=== PATIENT | male | born 1965 | race Caucasian/White ===

== ENCOUNTER → 2023-04-26 09:00 | Outpatient (REF) | payer OTHER, SELFPAY | LOC: RAD 09:00 | PROVIDERS: ATTENDING PHYSICIAN Student in an Organized Health Care Education/Training Program | DX: M25.512 Pain in left shoulder (principal) | CPT/HCPCS: 73030 ==

== ENCOUNTER 2023-09-18 08:43 | Emergency (ER) | payer OTHER, SELFPAY ==
[2023-09-18 08:48] VITALS: BP 141/83
[2023-09-18 09:26] VITALS: BMI 26.8
--- NOTE | 2023-09-18 09:26 | ED.GENMED ---
History of Present Illness
General
Chief Complaint: Abdominal Symptoms
Source: patient
Time Seen by Provider: 09/18/23 09:17
History of Present Illness
History of Present Illness:
58-year-old male with past medical history of hypertension, mbo-vsxviez-ucmoahnzx diabetes, anxiety presenting to the emergency department for 2 separate concerns. The most acute concern is patient developed generalized abdominal pain yesterday
evening, persisted throughout the night, described to be moderate to severe, constant, throbbing sensation, nonradiating, slightly improved currently but still present and accompanied with nausea and decreased p.o. intake. Patient denies any
history of similar and did not take any medications prior to arrival. Of secondary concern, patient states that he has had left hand swelling over the course of the last month, initially thought to be an allergic reaction so was using a topical
cream over the area but was then secondarily treated for a suspected cellulitis with an oral antibiotic which seem to be improving the swelling however over the last 48 hours the swelling seems to be worse again and now having pain up the entirety
of the left arm. Patient notes some skin breakdown in between the third and fourth digit of the affected left hand. States overall he is not sure as to how this started. Denies any focal weakness or numbness. No other concerns.
Past History
Past History
ED Past Medical History: HTN, Hypercholesterolemia, NIDDM and Psychiatric
ED Past Surgical History: Orthopedic, Tonsilectomy and Other (Gastrectomy and reversal, emergent surgery)
Social History
Tobacco: Non-smoker
Alcohol: None
Drug: None
Personal:
Living: with family
Employment: Employed (works for the government)
Family History
Family History: Other (nc)
Review of Systems
Review of Systems
All Other Systems: ROS reviewed and negative except as documented in HPI and ROS
Phy Exam
Physical Exam
Physical Exam:
GENERAL: Alert , in no apparent distress but is intermittently grimacing
EYE: clear conjunctiva b/l
HEAD: NCAT
ENT: mmm.
CARDIAC: Regular rate and rhythm .
LUNGS: Clear breath sounds bilaterally, no acute respiratory distress, no wheezes/rales/rhonchi
ABDOMEN: Soft, moderate tenderness within the left lower quad, no r/g, no cvat
NEUROLOGICAL: Alert and oriented
SKIN: Warm and dry, left hand: There is superficial skin breakdown on the palmar surface of the distal third and fourth metacarpal that extends towards the ring finger. There is no erythema, induration, warmth or tenderness. Patient is able to
flex and extend digits however does have some limited range of motion with flexion due to the edema but reports there is no pain while performing this. Sensation is grossly intact to light touch throughout the left upper extremity. Easily palpable
radial pulse. Cap refill less than 2 seconds.
MUSCULOSKELETAL: well perfused.
PSYCH: Normal and appropriate interaction.
Scores
Heart Failure Risk
Heart Failure Risk Score: Not Applicable
Heart Score for Chest Pain Patients
STEMI patient?: Not applicable
Withdrawal Assessment of Alcohol
Withdrawal Assessment Completed?: Not applicable
Course
Orders/Labs/Results
Orders:
Orders
09/18/23 09:20
Urinalysis Reflex To Culture Urgent
Date Specimen was Collected: 09/18/23
Time Specimen was Collected: 09:19
09/18/23 09:26
CT Abd/pelvis W Iv Cont Urgent
Comment:
Reason For Exam: generalized abd pain, worse LLQ on palpation
09/18/23 09:31
Complete Blood Count/With Diff Urgent
Comprehensive Metabolic Panel Urgent
Lipase Urgent
09/18/23 09:32
Ketorolac [Toradol] 30 mg IV NOW STA
09/18/23 11:49
Morphine Sulfate 4 mg IV NOW STA
Abnormal Lab Results
09/18/23 09/18/23
09:20 09:31
MPV 11.0 H fL
(7.4-10.4)
Glucose 207 H mg/dl
(70-99)
Urine Ketones Trace A
(Negative)
Urine Glucose 3+ A
(Negative)
09/18/23 09:31
09/18/23 09:31
Vital Signs
Initial and Last Documented VS:
Initial Vital Signs
Temp Pulse Resp BP Pulse Ox
98.2 F 81 18 141/83 98
09/18/23 08:48 09/18/23 08:48 09/18/23 08:48 09/18/23 08:48 09/18/23 08:48
Last Documented Vital Signs
Temp Pulse Resp BP Pulse Ox
98.2 F 65 20 147/77 100
09/18/23 08:48 09/18/23 12:14 09/18/23 12:14 09/18/23 12:14 09/18/23 12:14
MDM/Problems Addressed
Differential Diagnosis Includes:
Abdominal Concern - diverticulitis, appendicitis, renal/ureteral colic, pancreatitis, colitis
Skin related concern - cellulitis, tinea infection, tenosynovitis, foreign body/traumatic injury
MDM/Problems Addressed:
58-year-old male presenting to the emergency department for 2 separate related concerns. Patient did go to urgent care prior to arrival to the ER and was sent to the emergency department for further evaluation. His most pressing concern seems to
be the abdominal related symptoms. Will check labs. Patient amenable to pain medication with some Toradol. Pain seems to be more pronounced within the left lower quadrant and lower part of the abdomen. CT of the abdomen and pelvis ordered. For
patient's skin related presentation I am overall unclear as to what the exact etiology for his symptoms are however there does seem to be some improvement and given the duration of time with symptoms, I have minimal concern for emergent etiologies.
The skin breakdown seems to be older in appearance and not new. There is no overlying erythema or tenderness/pain associated. I am hesitant to start the patient on any other medications. Will provide him with information for outpatient follow-up
if symptoms persist or do not improve.
Chronic conditions affecting care: DM
*Radiology
Radiology exam reviewed: radiology read reviewed
*Pulse Oximetry
Patient hypoxic: no
*Critical Care Note
Total Time (30-74mins, 75-104mins- exclusive of procedures): Not Applicable
Data Reviewed
Review of Other/Old Records Reveals: Labs and Records
Source: patient
Patient Management
Escalation/DeEscalation of care consider admission/obs:
Patient CT scan shows suspected early acute uncomplicated sigmoid diverticulitis. Patient feels comfortable being discharged home. Will start on oral augmentin PO BID x 10 days. Advised close follow up with PCP as well as will need follow up with GI
as patient has yet to have colonoscopy before. Advised on return precautions to ED. Patient provided with printout of CT scan report.
ED Attending Note
-
Portions of this chart may have been created with voice recognition software.� Occasional wrong word or��sound alike� substitutions may have occurred due to the inherent limitations of voice recognition software.
Discharge Plan
Departure
Patient Disposition: Home (Routine Discharge)
Date of Disposition: 09/18/23
Time of Disposition: 12:26
Patient with high blood pressure during this ER visit?: Yes
Discharge Problem:
Diverticulitis
Instructions: Diverticulitis (DC)
Prescriptions:
New
amoxicillin-pot clavulanate 875-125 mg tablet
1 tab PO BID 10 Days Qty: 20 0RF
No Action
lisinopril 5 MG tablet
5 mg PO DAILY
hydrochlorothiazide 25 MG tablet
25 mg PO DAILY
metformin 500 MG tablet extended release 24 hr
500 mg PO Daily
atorvastatin [Lipitor] 40 mg Tablet
40 mg PO QPM
escitalopram oxalate [Lexapro] 20 mg Tablet
20 mg PO DAILY
lisdexamfetamine 40 mg Capsule
40 mg PO DAILYPRN PRN (Reason: adhd)
Referrals:
Clarice Roberts MD [Active] - (GI - Please call for appointment)
David Maria MD [Family Provider] -
Interventions
Interventions:
*Risk Screen - Suicide Last Done: 09/18/23 08:48
*General Assessment Last Done: 09/18/23 08:48
*Neglect/Abuse Screening Last Done: 09/18/23 08:48
ED- Fall Risk Assessment Last Done: 09/18/23 12:30
*ED COVID-19 Vaccine History Last Done: 09/18/23 08:48
*Nursing Disposition Last Done: 09/18/23 12:30
CD-Zwenvs-Bccrojyhho Assessment Last Done: 09/18/23 09:30
ED- Cardiac Assessment Last Done: 09/18/23 09:29
ED- Pulmonary Assessment Last Done: 09/18/23 09:29
ED-Skin Assessment Last Done: 09/18/23 09:29
Discharge Date and Time
Discharge Date/Time: 09/18/23 12:30
Print Language: AZERI
[2023-09-18] MEDS: TORADOL 30 MG IV (09:34)
[2023-09-18 09:46] LABS: % Basophils 0.4 % (0-2); % Eosinophils 0.7 % (0-6); % Immature Granulocytes 0.4 % (0-0.5); % Monocytes 6.9 % (1.7-9.3); % Neutrophils 69.6 % (42.2-75.2); Absolute Eosinophils 0.1 10^3/uL (0-0.7); Absolute Lymphocytes 1.7 10^3/uL (1.2-3.4); Absolute Monocytes 0.5 10^3/uL (0.1-0.6); Absolute Neutrophils 5.2 10^3/uL (1.4-6.5); Hematocrit 42.1 % (39.0-52.0); Mean Corp Hgb Conc. 35.6 g/dL (33.0-37.0); Mean Corpuscular Volume 81.4 fL (80.0-94.0); Nucleated Red Blood Cells % 0 % (-); Platelet Count 244 10^3/uL (130-400); Red Blood Cell Count 5.17 10^6/uL (4.70-6.10); Red Cell Dist. Width 12.6 % (11.5-14.5); White Blood Cell Count 7.5 10^3/uL (4.8-10.8)
[2023-09-18 10:00] LABS: ALT (SGPT) 24 U/L (0-50); AST (SGOT) 21 U/L (17-59); Albumin 4.4 g/dl (3.5-5.0); Alkaline Phosphatase 77 U/L (38-126); Blood Urea Nitrogen 18 mg/dl (9-20); Calcium 9.9 mg/dl (8.4-10.2); Carbon Dioxide 28 mmol/L (22-30); Chloride 101 mmol/L (98-107); Estimated Creatinine Clearance > 125 ml/min; Glucose 207 mg/dl (70-99); Lipase 47 U/L (23-300); Potassium 3.8 mmol/L (3.5-5.1); Sodium 137 mmol/L (135-145); Total Bilirubin 1.2 mg/dl (0.2-1.3); Total Protein 6.5 g/dl (6.3-8.2); eGFR > 60.00
[2023-09-18 10:02] LABS: Urine Albumin Trace (Neg - Trace); Urine Bilirubin Negative (Negative); Urine Character Clear (Clear); Urine Color Yellow; Urine Glucose 3+ (Negative); Urine Ketone Trace (Negative); Urine Leukocyte Negative (Negative); Urine Nitrite Negative (Negative); Urine Occult Blood Negative (Negative); Urine Urobilinogen Negative (Neg - 1+)
[2023-09-18] MEDS: MORPHINE SULFATE 4 MG IV (12:11)
[2023-09-18 12:14] VITALS: BP 147/77
== END 2023-09-18 12:30 | disposition home or self-care (01) ==
LOC: EMR 08:43
PROVIDERS: Physician Assistant Medical; EMERGENCY PHYSICIAN Student in an Organized Health Care Education/Training Program; FAMILY PHYSICIAN Family Medicine
DX: K57.32 Diverticulitis of large intestine without perforation or abscess without bleeding (principal); M79.602 Pain in left arm; M79.89 Other specified soft tissue disorders; I10 Essential (primary) hypertension; E11.9 Type 2 diabetes mellitus without complications; E78.00 Pure hypercholesterolemia, unspecified; F41.9 Anxiety disorder, unspecified; N40.0 Benign prostatic hyperplasia without lower urinary tract symptoms; Z79.84 Long term (current) use of oral hypoglycemic drugs
CPT/HCPCS: 99285; 96375; 96374; 74177; 80053; 81003; 83690; 85025; Q9967

== ENCOUNTER → 2024-03-28 11:13 | Outpatient (REF) | payer OTHER, SELFPAY | LOC: RAD 11:13 | PROVIDERS: ATTENDING PHYSICIAN Nurse Practitioner Family | DX: M25.542 Pain in joints of left hand (principal); M79.632 Pain in left forearm | CPT/HCPCS: 73090; 73140 ==

== ENCOUNTER → 2024-10-15 12:25 | Outpatient (REF) | payer OTHER, SELFPAY | LOC: DHVS 12:25 | PROVIDERS: ATTENDING PHYSICIAN Nurse Practitioner Family | DX: R25.2 Cramp and spasm (principal) | CPT/HCPCS: 93922; 93925 ==

== ENCOUNTER → 2025-01-14 10:34 | Outpatient (REF) | payer OTHER, SELFPAY | LOC: RAD 10:34 | PROVIDERS: ATTENDING PHYSICIAN Nurse Practitioner Family | DX: R10.9 Unspecified abdominal pain (principal) | CPT/HCPCS: 76700 ==